=== PATIENT | female | born 1990 | race Two or more races ===

== ENCOUNTER → 2024-10-29 | Outpatient (CLI) | payer MEDICAID, SELFPAY ==
--- NOTE | 2024-10-29 13:00 | XR_ITS ---
Examination: Abdomen sonogram, complete Date and time of exam: October 29, 2024 1318 hours INDICATIONS: Upper abdominal pain right upper abdominal pain 6 years. Technique: Multiple real-time grayscale transabdominal sonographic images of the abdomen have been obtained. Findings: Multiple gallstones Gallbladder wall 0.3 cm no edema Common bile duct 0.3 cm Pancreatic head 2.9 cm Aorta not enlarged Liver 15.6 cm fatty liver no focal liver lesions Normal hepatopedal portal venous flow Patent IVC Right kidney 10.2 x 6.8 x 5.6 cm renal cortex 2.3 cm Left kidney 10.9 x 6.8 x 6.0 cm cortex 2.1 cm Spleen 9.8 cm with 8 mm cyst IMPRESSION: Cholelithiasis, negative for cholecystitis Liver normal size no focal liver lesions
== END | disposition home or self-care (01) ==
LOC: CDIM 13:02
DX: K80.20 Calculus of gallbladder without cholecystitis without obstruction (principal)
CPT/HCPCS: 76700